=== PATIENT | male | born 1995 ===

== ENCOUNTER 2021-08-31 07:39 | Emergency (ER) | payer OTHER ==
[~2021-08-31] VITALS: Ht 182.9 cm; Wt 81.6 kg
[2021-08-31 07:45] VITALS: BP 121/81
[2021-08-31 08:39] LABS: Urine Amorphous Crystal FEW /hpf (None Seen); Urine Bacteria NONE SEEN /hpf (None Seen); Urine Blood Negative /uL (Negative); Urine Mucus FEW (None Seen); Urine Specific Gravity 1.029 (1.001-1.035); Urine WBC 81 /hpf (0 - 3); Urine WBC Clumps PRESENT /hpf (None Seen)
[2021-08-31 08:48] LABS: Amphetamine Screen, Urine POSITIVE (NEGATIVE); Barbiturate Scree,Urine NEGATIVE (NEGATIVE); Benzodiazephine Screen, Urine NEGATIVE (NEGATIVE); Cannabinoid Screen, Urine POSITIVE (NEGATIVE); Cocaine Screen, Urine POSITIVE (NEGATIVE); Phencyclidine Screen, Urine NEGATIVE (NEGATIVE)
[2021-08-31 08:56] LABS: Opiate Scree,Urine NEGATIVE (NEGATIVE)
== END 2021-08-31 09:16 | disposition left against medical advice (07) ==
LOC: ER 07:39
DX: R23.4 Changes in skin texture (principal); Z53.21 Procedure and treatment not carried out due to patient leaving prior to being seen by health care provider
CPT/HCPCS: 80307; 81001

== ENCOUNTER 2021-08-31 13:15 | Emergency (ER) | payer OTHER ==
[~2021-08-31] VITALS: Ht 177.8 cm; Wt 72.6 kg
[2021-08-31 13:19] VITALS: BP 122/69
== END 2021-08-31 16:37 | disposition left against medical advice (07) ==
LOC: EDBD 13:15 → ER 13:22
DX: M79.672 Pain in left foot (principal); M79.671 Pain in right foot; Z53.21 Procedure and treatment not carried out due to patient leaving prior to being seen by health care provider